=== PATIENT | female | born 1995 | race Two or more races ===

== ENCOUNTER → 2025-01-27 | Outpatient (CLI) | payer MEDICAID, SELFPAY ==
--- NOTE | 2025-01-27 14:15 | XR_ITS ---
Examination: Diagnostic digital mammography, unilateral, right Computer aided detection 3-D breast Tomosynthesis, unilateral Date and time of exam: 01/27/2025, 2:16 PM Comparisons: Baseline exam Indications: Palpable abnormality Technique: Nonmagnified MLO, CC views of the right breast have been obtained, reconstructed from 3-D Tomosynthesis images. R2 computer aided detection program utilized for evaluation of suspicious masses and/or abnormal calcifications. 3-D Tomosynthesis images obtained. Technologist: Findings: The breasts are heterogeneously dense, which may obscure small masses. No evidence of abnormal masses or suspicious calcifications. Impression: No mammographic correlate for the palpable abnormality. Ultrasound examination right breast is recommended. BI-RADS category 0: Incomplete assessment; need additional imaging evaluation
== END | disposition home or self-care (01) ==
DX: R92.8 Other abnormal and inconclusive findings on diagnostic imaging of breast (principal)
CPT/HCPCS: 77061; 77065; G0279

== ENCOUNTER 2025-05-11 14:53 | Emergency (ER) | payer MEDICAID, SELFPAY ==
[2025-05-11 14:54] VITALS: BMI 23.1
[2025-05-11 15:20] VITALS: BP 99/64; PULSE 88; RESP 18; TEMP 36.8; O2SAT 100
--- NOTE | 2025-05-11 15:20 | XR_ITS ---
Examination: Knee, left , 3 views Technique: Knee AP, lateral, oblique 3 views Date and time of exam: May 11, 2025 1541 hrs. Indications: Left knee pain beginning 3 days ago. Findings: No fracture or dislocation. No significant arthritic change Impression: No fracture. No significant arthritic change
--- NOTE | 2025-05-11 15:56 | EDNOTE_ITS ---
Lower Extremity Injury RME/HPI General Chief Complaint: Extremity Injury, Lower Stated Complaint: LEFT KNEE INJURY Time Seen by Provider: 05/11/25 14:55 Source: patient Arrival date/time: 05/11/25 14:53 This is a case of 30-year-old female who came in in the emergency room due to left knee pain for 4 days patient states that she walks a lot but cannot remember if she injured his left knee patient states that the pain is more on the left anterior knee with mild swelling denies any numbness weakness tingling sensation denies any redness Limitations: no limitations Related Data Home Medications ?Medication ?Instructions ?Recorded ?Confirmed albuterol sulfate 90 mcg/actuation 2 puff inhalation Q 6H PRN Wheezing 09/06/21 06/08/23 aerosol inhaler Previous Rx's ?Medication ?Instructions ?Recorded ibuprofen 600 mg tablet 600 mg PO Q6H PRN pain #90 t abs 08/07/22 cyclobenzaprine 5 mg tablet 5 mg PO TID PRN muscle spa sm #30 08/22/23 tabs ibuprofen 600 mg tablet 600 mg PO Q6H PRN pain #20 t abs 05/11/25 Allergies Allergy/AdvReac Type Severity Reaction Status Date / Time vancomycin Allergy Severe Rash Verified 05/11/25 14:55 Review of Systems Review of Systems Systems Reviewed: All systems reviewed, normal except as documented Constitutional Constitutional: Reports system reviewed and no additional complaints, except as documented and Reports as per HPI ENT Ears, Nose, Mouth, and Throat: Denies neck pain Cardiovascular Cardiovascular: Reports system reviewed and no additional complaints, except as documented and Reports as per HPI Respiratory Respiratory: Reports system reviewed and no additional complaints, except as doc umented and Reports as per HPI Gastrointestinal Gastrointestinal: Reports system reviewed and no additional complaints, except as documented and Reports as per HPI Musculoskeletal Musculoskeletal: Reports system reviewed and no additional complaints, except as documented, Reports as per HPI, Denies abnormal gait, Reports arthralgias, Denies atrophy, Denies back pain, Denies deformity, Denies joint swelling, Denies limited range of motion, Denies loss of height, Denies muscle cramps, Denies muscle weakness, Denies myalgias, Denies neck pain, Denies numbness, Denies radiating pain into limb, Denies stiffness and Denies tingling Neurologic Neurologic: Reports system reviewed and no additional complaints, except as documented, Reports as per HPI, Denies abnormal gait, Denies numbness and Denies tingling Past Medical History Past Medical History NEUROLOGIC: Positive Neurological Disorders (PAST OUT, [facility] [employer]. last episode in November), Seizures and Migraine CARDIAC: Negative Cardiac Disorders (pt stated has seen cardio yrs ago for chest pain, it was cleared), Congestive Heart Failure, Edema, Cellulitis or Varicose Veins RESPIRATORY: Positive Asthma; Negative Chronic Obstructive Pulmonary Disease (COPD) GASTROINTESTINAL: Negative Gastrointestinal Disorders or Hepatitis GENITOURINARY: Negative Genitourinary Disorders or Renal Disease REPRODUCTIVE: Positive Previous Pregnancies (7) MUSCULOSKELETAL: Positive Musculoskeletal Disorders and Fractures (RT HAND FINGERS WITH SX.) ENDOCRINE: Negative Endocrine Disorders, Diabetes Mellitus Type 1 or Diabetes Mellitus Type 2 HEMATOLOGIC: Positive Blood Disorders and Anemia; Negative Clotting Problems PSYCHO/SOCIAL: Positive Depression (MEDS PRIOR TO PREG.) and Anxiety OTHER HISTORY: Positive Blood Transfusions, Blood Transfusion Reaction and Chicken Pox; Negative Hospitalization, Autoimmune Disease, Down Syndrome, Developmental Delay, Shingles, Falls, Anesthesia Reactions, Chemotherapy, Radiation Therapy, MRSA, VRSA, Vancomycin-Resistant Enterococci, Measles, Mumps, Rubella (Danish Measles), Pertussis or Cancer Family History FAMILY HISTORY: Positive Family Respiratory Disorders (ASTHMA MOTHER AND BROTHER), Family Gastrointestinal Problems (KUMAR- MOTHER) and Family Surgery; Negative Family Psychiatric Problems, Family Cardiac Disorders, Family Cancer or Family Anesthesia Reaction Surgical History SURGICAL: Negative Pacemaker or Section Social History SMOKING STATUS: Never smoker SUBSTANCE USE: does not use ED Exam General Limitations: Present no limitations General appearance: Present alert and in no apparent distress Head Head exam: Present atraumatic, normocephalic and normal inspection Eye Eye exam: Present normal appearance, PERRL and EOMI ENT ENT exam: Present normal exam, normal oropharynx and mucous membranes moist Neck Neck exam: Present normal inspection, full ROM and trachea midline; Absent tenderness, meningismus, lymphadenopathy or thyromegaly Chest Chest inspection: Present normal inspection and symmetric chest wall rise; Absent tenderness, rash or abscess Respiratory Respiratory exam: Present normal lung sounds bilaterally; Absent respiratory distress, wheezes or stridor Cardiovascular Cardiovascular exam: Present regular rate, normal rhythm and normal heart sounds Abdominal Exam Abdominal exam: Present soft and normal bowel sounds Extremities Exam Extremities exam: Present normal inspection and full ROM Expanded Lower Extremity Exam Knee exam: Present normal inspection, full ROM and tenderness (Mild tenderness on the left anterior knee no prepatellar tenderness or swelling noted mild swelling on the medial aspect of the left knee no crepitation no deformity no dislocation no erythema no effusion ROM intact neurovascular intact); Absent swelling, abrasion, laceration, ecchymosis, deformity, crepitus, dislocation, erythema, effusion, anterior drawer sign, posterior draw sign, pain with valgus, laxity with valgus, pain with varus, laxity with varus or knee extension intact Back Exam Back exam: Present normal inspection and full ROM Neurological Exam Neurological exam: Present alert, oriented X3 and CN II-XII intact Psychiatric Psychiatric exam: Present normal affect and normal mood Skin Skin exam: Present warm, dry, intact and normal color Course Quality Measures none Orders Category Date Time Status Apply knee immobilizer NOW Care 05/11/25 15:55 Active XR knee LT 3V Stat Exams 05/11/25 15:20 Taken Ketorolac Inj [Toradol Inj] Med 05/11/25 15:55 Discontinued 30 mg IM X1 ONE Vital Signs Vital signs: Vital Signs Temperature 98.3 F 05/11/25 15:20 Pulse Rate 88 05/11/25 15:20 Respiratory Rate 18 05/11/25 15:20 Blood Pressure 99/64 05/11/25 15:20 Pulse Oximetry (%) 100 05/11/25 15:20 Oxygen Delivery Method Room Air 05/11/25 15:20 Oxygen saturation 100% in room AIR Extremity Injury, Lower MDM Narrative MDM Narrative:: This is a case of 30-year-old female who came in in the emergency room due to left knee pain for 4 days patient states that she walks a lot but cannot remember if she injured his left knee patient states that the pain is more on the left anterior knee with mild swelling denies any numbness weakness tingling sensation denies any redness physical examination patient is awake alert oriented not in distress nontoxic looking noted mild tenderness to left anterior knee no prepatellar tenderness no crepitation no deformity no redness no erythema ROM intact no knee joint effusion neurovascular intact x-ray showed no fracture knees dislocation patient was given knee immobilizer patient was advised to follow-up with PCP in 2 days for reevaluation and if symptoms persist for 5 to 7 days need to see an Ortho for possible MRI to rule out meniscus or ligament injury Patient was discharged with comfortable condition walking with stable gait. Patient verbalized no further complains explained diagnosis and answered patient question. Patient is comfortable with the proposed management plan including the need to follow up with his/her primary care physician and any specialist if applicable Discussed patient for any urgent condition or worsening sx, He/She needed to go to emergency room immediately or call 911. Patient acknowledge the responsibility to follow up as instructed and to monitor her/his symptoms. For any persistence of the symptoms for more than 3-5 days return precaution advised. Discussed the result of the test and was given printed discharge instruction Patient data External records reviewed:: [facility] previous records Clinical information provided by:: patient Social determinants that could affect healthcare access:: none Patient has the following chronic illnesses:: None How is presenting disease/condition affected by chronic disease/condition?: no chronic disease Evaluation data The following diagnostics were reviewed and interpreted by me:: radiology exam(s) Lab and/or radiology exams considered but not ordered:: Reviewed Interpretation Summary: Reviewed Medications / Prescriptions Medications or Prescriptions considered but not ordered:: Given Medication administrations:: Medication Administration History Discontinued Medications Ketorolac Tromethamine (Ketorolac Inj 60 Mg/2 Ml Vial) 30 mg IM X1 ONE Stop: 05/11/25 15:56 Given Consultations Consultation(s) initiated? (list below): No Diagnosis Extremity Injury, Lower Differential Diagnosis: acute internal derangement of knee and other (Knee fracture osteoarthritis) Most likely diagnosis given after review of the tests above:: Knee sprain Admission Indicated Admission indicated?: not indicated Explain why admission is indicated or not indicated:: Not indicated Admission Request Was there a request for admission?: No Admission Attestation Admission request attestation: Not indicated Disposition Plan Disposition Plan: Discharge Discharge Attestation Discharge Attestation: The patient and all family members were given an opportunity to ask questions and understood the discharge instructions. Discharge instructions specifically effects, indications for sooner follow up or return to the emergency department, and the expected course of current diagnosis. Patient condition: Stable Discharge Plan Plan Patient Disposition: HOME (Self Care) Patient condition on transfer: Stable Prescriptions/Referrals Prescriptions/Med Rec: New ibuprofen 600 mg tablet 600 mg PO Q6H PRN (Reason: pain) Qty: 20 0RF No Action albuterol sulfate 90 mcg/actuation Hfa Aerosol Inhaler 2 puff INHALATION Q6H PRN (Reason: Wheezing) Patient Comments: HASNT USED IN A LONG TIME, PRN USE ONLY cyclobenzaprine 5 mg tablet 5 mg PO TID PRN (Reason: muscle spasm) Qty: 30 0RF ibuprofen 600 mg tablet 600 mg PO Q6H PRN (Reason: pain) Qty: 90 0RF Referrals: No Primary/Family,Physician [Primary Care Provider] - In 1 week Problem List Clinical Impression: Knee sprain Patient/Caregiver Discharge Instructions Education Materials: Self-Care for Strains and Sprains, ED Knee Immobilizer, ED Knee Sprain, ED RICE Additional Instructions: Follow-up with your primary care physician in 2 days for reevaluation worsening symptoms persistence of the symptoms or any emergent concern return to the emergency room immediately or call 911 if the symptoms persist for more than 5 to 7 days return to your primary care physician to be referred to Ortho for possible MRI to rule out ligament or meniscus injury ice pack every 2 hours for 20 minutes for 24 hours and alternate with warm compress keep the knee immobilizer in place until cleared by your primary care physician Print Language: Icelandic Stand Alone Forms: Caitlin Award Info., Patient Portal Info Letter PA/PLATING OPERATOR Supervising Physician PA/RENA Supervising Physician: DR HUGHES
[2025-05-11] MEDS: KETOROLAC INJ 60 MG/2 ML VIAL 30 MG IM (16:09)
== END 2025-05-11 16:20 | disposition home or self-care (01) ==
PROVIDERS: Emergency Provider Family Medicine
DX: S83.92XA Sprain of unspecified site of left knee, initial encounter (principal); X58.XXXA Exposure to other specified factors, initial encounter
CPT/HCPCS: 73562; 96372; 99283; J1885

== ENCOUNTER 2025-08-07 11:00 | Outpatient (RCR) | payer MEDICAID, SELFPAY ==
--- NOTE | 2025-07-30 16:14 | PTNOTE_ITS ---
PT OP Initial Eval Patient Information Outpatient Physical Therapy Treatment Date: 07/30/25 Visit Reasons: Left knee pain Medical Diagnosis: Left Knee Pain Treatment Dx #1: Left Knee Pain Start of Care: 07/23/25 Date of Onset: 05/11/25 Smoking Status Smoking Status: Never smoker Initial Assessment Subjective: Pt is a 30 y/o female reports of left knee pain (7/10) since 05/11/25 where she got up from a W sitting position. Pt heard a pop and notice more swelling. Pt's xray negative but no MRI. Pt feels 75% better. Pt still has limitation with walking, standing, pivoting, deep squat, chores, balance, working out, and running. Objective: Left Knee AROM: all motions are WNL Left Knee MMTs: grossly 4-5 Left Hip MMTs: grossly 3+/5 Special Test (+) Thessaly (+) Mikhail Assessment: Pt demonstrate left knee pain consistent with meniscal involvement leading to difficulty with ADLs. Pt will attempt physical therapy if pain persist Pt will be refer back to provider for further consultation Short Term and Access Database Developer Goals 1) Increase left knee MMTs grossly to 4/5 in 6 wks to be able to perform squatting activities 2) Decrease knee pain to 2/10 in 6 wks to be able to stand more than 30 mins 3) Increase left hip MMTs grossly to 4-/5 in 6 wks to be able to perform recreational activities 4) Indep with HEP Treatment Plan 1) Manual Therapy 2) Therapeutic Activities 3) Therapeutic Exercises 4) Modalities (ice, heat) 5) Balance Training Frequency and Duration: 2 x wk for 6 wks Certification Dates: 07/30/25 to 10/29/25 Procedure Charges OP PT Eval Mod Complex 30 minutes: Yes
--- NOTE | 2025-08-07 13:07 | PT.ODAYNRPT ---
PT Outpatient Daily Note OP Daily Note Outpatient Physical Therapy Treatment Date: 08/07/25 Visit Reasons: Left knee pain Subjective: Pt c/o medial L knee pain. Objective: Please see flow sheet for ther ex list. Assessment: Light strengthening interventions completed with minimal pain. Plan: Continue with poC. Length of Time (minutes) of Treatment: 30 Minutes Procedure Charges Therapeutic Exercise 30 minutes: Yes
== END 2025-08-19 23:59 | disposition home or self-care (01) ==
LOC: CPTX 11:00
DX: M25.562 Pain in left knee (principal); M25.462 Effusion, left knee; R26.2 Difficulty in walking, not elsewhere classified; R26.89 Other abnormalities of gait and mobility
CPT/HCPCS: 97110; 97162